=== PATIENT | male | born 1955 | race Two or more races ===

== ENCOUNTER 2018-03-27 16:16 | Inpatient (IN) | payer OTHER, MEDICAID | END 2018-03-28 13:40 | disposition home or self-care (01) | LOC: ER 16:16 → TELE-EAST 19:38 ==

== ENCOUNTER 2018-06-02 00:24 | Emergency (ER) | payer OTHER, MEDICAID ==
[~2018-06-02] VITALS: Ht 165.1 cm; Wt 74.4 kg
[~2018-06-02 00:24] MED LIST: ALBU0.5N2; FLUT100M7; GABA100C9 PO; GENUVIA; LORA-622 PO; METF-372; PANT40TA2 PO; SITA50TA PO
[2018-06-02] MEDS ORDERED: SODIUM CHLORIDE 0.9% 1,000 ML IV ONE (01:15)
[2018-06-02] MEDS ORDERED: InsuLIN REG 1unit/0.01ml Soln (100units/ml) IV ONE (01:15)
[2018-06-02 01:44] LABS: Basophils # (auto) 0 uL; Basophils % (auto) 0.2 % (0.0-2.0); Eosinophils # (auto) 0 uL; Hematocrit 47.7 % (41.0-53.0); Hemoglobin 15.7 g/dL (13.5-17.5); Lymphocytes # (auto) 0.5 uL; Lymphocytes % (auto) 7.7 % (10.0-50.0); Mean Corpuscular Hemoglobin 28.9 pg (28.0-32.0); Mean Corpuscular Volume 87.5 fL (80.0-100.0); Monocytes # (auto) 0.1 uL; Monocytes % (auto) 1.2 % (0.0-12.0); Neutrophils # (auto) 5.5 uL; Neutrophils % (auto) 90.9 % (37.0-80.0); Nucleated Red Blood Cells % 0.1 %; Platelet Count (auto) 188 10^3/uL (140-450); Red Blood Cells 5.45 10^6/uL (4.5-5.90); Red Cell Distribution Width 15.3 % (11.8-14.3)
[2018-06-02 02:02] LABS: Chloride 107 mmol/L (98-107); Potassium 4.4 mmol/L (3.5-5.1); Sodium 140 mmol/L (136-145)
[2018-06-02 02:07] LABS: Albumin 3.5 g/dL (3.4-5.0); Anion Gap 13 (5-15); Blood Urea Nitrogen 18 mg/dL (7-18); Calcium 9.2 mg/dL (8.5-10.1); Carbon Dioxide 20 mmol/L (21-32); Glucose 321 mg/dL (74-106)
[2018-06-02 02:12] LABS: Alanine Aminotransferase 31 U/L (16-61); Alkaline Phosphatase 111 U/L (45-117); Aspartate Aminotransferase 16 U/L (15-37); BUN/Creatinine Ratio 19.8; Bilirubin, Total 0.2 mg/dL (0.2-1.0); GFR African American 108 mL/min; GFR Non-African American 89 mL/min; Total Protein 7.5 g/dL (6.4-8.2)
[2018-06-02 02:30] LABS: Urine WBC None Seen /hpf (0 - 3)
[2018-06-02 03:00] LABS: Urine Bacteria NONE SEEN /hpf (None Seen); Urine Blood Negative /uL (Negative); Urine Specific Gravity 1.038 (1.001-1.035)
[2018-06-02 03:06] VITALS: BP 118/76
== END 2018-06-02 03:38 | disposition home or self-care (01) ==
LOC: ER 00:25
DX: E11.65 Type 2 diabetes mellitus with hyperglycemia (principal); J45.909 Unspecified asthma, uncomplicated; Z87.891 Personal history of nicotine dependence; Z79.899 Other long term (current) drug therapy
CPT/HCPCS: 36415; 70450; 71045; 80053; 81001; 82962; 83036; 84484; 85025; 96361; 96374; 99284; J1815; J7030